=== PATIENT | female | born 1980 | race Caucasian/White ===

== ENCOUNTER → 2023-12-17 14:27 | Outpatient (REF) | payer OTHER, SELFPAY ==
[2023-12-17 16:33] LABS: Rubella Positive
[2023-12-17 16:56] LABS: Hepatitis B Surface Antibody Positive
== END ==
LOC: REG 14:27
PROVIDERS: ATTENDING PHYSICIAN Nurse Practitioner Family; FAMILY PHYSICIAN Nurse Practitioner
DX: Z23 Encounter for immunization (principal)
CPT/HCPCS: 36415; 86706; 86735; 86762; 86765; 86787